=== PATIENT | female | born 1950 | race Caucasian/White ===

== ENCOUNTER 2018-07-27 09:05 | Emergency (ER) | payer OTHER, MEDICARE ==
[~2018-07-27] VITALS: Ht 160 cm; Wt 81.7 kg
[2018-07-27 09:24] LABS: ABSOLUTE NEUTROPHILS 5.2 thou/uL (1.4-8.2); BASOPHILS 0.8 % (0.0-2.0); HEMATOCRIT 43.8 % (37.0-47.0); HEMOGLOBIN 15.2 gm/dL (12.0-15.0); LYMPHOCYTES 20.1 % (24.0-44.0); MCH 31.3 pg (26.0-34.0); MCHC 34.7 g/dL (28.0-37.0); MCV 90.3 fL (80.0-100.0); MONOCYTES 7.3 % (1.0-8.0); PLATELET COUNT 200 thou/uL (150-400); POLYS 68.8 % (36.0-66.0); RBC 4.85 mil/uL (4.20-5.00); RDW 13.8 % (10.5-14.5); WBC 7.6 thou/uL (4.0-11.0)
[2018-07-27] MEDS ORDERED: SYNTHROID100 MC1 PO (09:24)
[2018-07-27] MEDS ORDERED: ATORVASTATIN CA40 MG PO (09:25)
[2018-07-27] MEDS ORDERED: BISOPROLOL FUMAR5 MG PO (09:25)
[2018-07-27 09:33] LABS: ANION GAP 8 mmol/L (7-16); BUN 10 mg/dL (7-18); CALCIUM 10.7 mg/dL (8.5-10.1); CHLORIDE 102 mmol/L (98-107); CO2 30 mmol/L (21-32); CREATININE 0.9 mg/dL (0.6-1.0); GLUCOSE 119 mg/dL (74-106); POTASSIUM 3.8 mmol/L (3.5-5.1); SODIUM 140 mmol/L (136-145)
--- NOTE | 2018-07-27 09:40 | EKG ---
[place] [address] [facility] [place] [place] [address] ELECTROCARDIOGRAM REPORT Name: ADEN VAZQUEZ Room #: [facility].#: [id number] ������������������ Admission: ������������������ Attend Phys: Discharge: ������������������ Date of : 52 Report #: [id number] ����������������������������������������������������������������� [id number] THIS REPORT FOR: //name// [facility] ED Test Date: 2018-07-27 Test Time: 09:13:39 Pat Name: ADEN VAZQUEZ Department: Room: Gender: F Score Caller: : 1950 Requested By: Sai Monet Order Number: [id number] MD: Roshan Green Measurements Intervals [place] Rate: 56 P: 3 ME: 151 QRS: 5 QRSD: 98 T: 7 QT: 412 QTc: 398 Interpretive Statements Sinus rhythm RSR' in V1 or V2, probably normal variant No previous ECG available for comparison Electronically Signed On 07-27-2018 9:40:03 CDT by Roshan Green [email or web address] ��������������������������������������������� <ELECTRONICALLY SIGNED> ���������������������������������������� By: Roshan Green MD, [facility] ��������������������������������������������� 07/27/18 0940 0913 2 Roshan Green MD, FACC /EPI
[2018-07-27 09:41] LABS: ALBUMIN 4.2 g/dL (3.4-5.0); LIPASE 183 U/L (73-393); SGOT 31 U/L (15-37); SGPT 42 U/L (30-65); TOTAL BILIRUBIN 0.6 mg/dL (<0.1-1.0); TOTAL PROTEIN 7.7 g/dL (6.4-8.2); TROPONIN-I <0.06 ng/mL (<0.06)
[2018-07-27 10:46] LABS: URINE BILIRUBIN NEGATIVE (Negative); URINE BLOOD TRACE (Negative); URINE CLARITY CLEAR; URINE COLOR YELLOW; URINE GLUCOSE-RANDOM* NEGATIVE (Negative); URINE KETONES NEGATIVE (Negative); URINE LEUKOCYTES-REFLEX NEGATIVE (Negative); URINE NITRITE-REFLEX NEGATIVE (Negative); URINE PROTEIN (DIPSTICK) NEGATIVE (Negative); URINE UROBILINOGEN 0.2 E.U./dl (0.2-1.0)
[2018-07-27] MEDS ORDERED: FLOMAX0.4 MG PO (12:24)
[2018-07-27] MEDS ORDERED: SENNA-DOCUSATE1 EAC1 PO (12:24)
[2018-07-27] MEDS ORDERED: NORCO 5-325 TA1 EACH PO (12:24)
[2018-07-27] MEDS ORDERED: ZOFRAN ODT4 MG PO (12:24)
[2018-07-27] MEDS ORDERED: IBUPROFEN 600600 M1 PO (12:24)
[2018-07-27] MEDS ORDERED: BENTYL 20 MG TA20 M1 PO (12:26)
[2018-07-27 12:59] VITALS: BP 137/51
== END 2018-07-27 13:17 | disposition home or self-care (01) ==
LOC: ER 09:05
PROVIDERS: Emergency Medicine
DX: K52.9 Noninfective gastroenteritis and colitis, unspecified (principal); Z88.2 Allergy status to sulfonamides